=== PATIENT | male | born 1965 | race Caucasian/White ===

== ENCOUNTER → 2020-03-09 13:08 | Outpatient (CLI) | payer OTHER, SELFPAY ==
[2020-03-09 15:30] LABS: COVID19 -Nasal RAPID Negative (Negative)
== END ==
PROVIDERS: Visit Provider Physician Assistant
DX: Z20.828 Contact with and (suspected) exposure to other viral communicable diseases (principal)
CPT/HCPCS: 87635

== ENCOUNTER 2020-03-11 06:10 | Inpatient (IN) | payer OTHER, SELFPAY ==
[2020-03-03 13:43] VITALS: BMI 29.7
[2020-03-11] VITALS (20 sets, daily range): BP systolic 97–155; BP diastolic 46–88; PULSE 57–99; RESP 10–16; TEMP 35.9–37.9; O2SAT 83–100; BMI 30.1
--- NOTE | 2020-03-11 | DI.RAD.S_ITS ---
PROCEDURE: XR LUMBAR SPINE 2-3V INDICATIONS: L3-4, L4-5 TLIF TECHNIQUE: 2 operative views of the lumbar spine were acquired. COMPARISON: None. FINDINGS: AP and lateral C-arm images demonstrate posterolateral raquel and pedicle screw fixation at L3 through L5 and interbody cage material placement at L3-L4 and L4-L5. IMPRESSION: Operative imaging utilized during lumbar fusion. No radiographic evidence of complications. Dictated by: Navdeep Marshall M.D. on 03/11/2020 at 11:39 Approved by: Navdeep Marshall M.D. on 03/11/2020 at 11:40
[2020-03-11] MEDS: LACTATED RINGERS 1,000 ML 42 ML IV ×2 (07:01→09:26)
--- NOTE | 2020-03-11 07:43 | PM.PREOP ---
Pre-operative Note COVID-19 COVID-19 status: Negative Result date/Date tested (Pos, Neg/Pending): 03/09/20 Interval Note History & Physical reviewed/Exam performed by Physician: Yes Changes to H&P: No
[2020-03-11] MEDS: CEFAZOLIN 2 GM/100 ML FROZ.PIGGY IV (07:53)
--- NOTE | 2020-03-11 08:42 | SUR.OPER ---
Prone on spine table, head in foam head support, padded chest and pelvic supports, gel pad at knees, lower legs supported by pillows; nipples, genitalia and toes free of pressure, arms secured on foam padded arm boards at <90 degrees abduction.
[2020-03-11] MEDS: BUPIVACAINE LIPOSOME 266 MG/20 ML VIAL INJ (08:46)
[2020-03-11] MEDS: BUPIVACAINE 0.25% W/ EPI (PF) 10 ML VIAL 20 ML INJ (08:48)
--- NOTE | 2020-03-11 11:11 | PM.OP.1 ---
Operative Date/Time/Diagnoses Date of procedure: 03/11/20 Time of procedure: 08:11 Pre-op diagnosis: 1. L3-4, L4-5 spinal stenosis 2. L3-4, L4-5 spondylolisthesis Post-op diagnosis: same Procedure & Clinicians Procedure: 1. L3-4, L4-5 Postero-lateral and posterior interbody fusion 2. L3-4, L4-5 interbody cage placement. 3. L3-4, L4-5 decompressive laminectomy with bilateral facetecomies 4. L3-4, L4-5 Posterior segmental instrumentation 5. [place] of bone marrow from iliac crest 6. Utilization of microsurgical technique and operating microscope Same procedure as scheduled: Yes Indications: Patient has been having chronic back pain and worsening lumbar radiculopathy. Patient failed multiple conservative management with worsening pain weakness and numbness in her lower extremity. Patient has been having difficulty performing activity of daily living. After discussing risks benefits of treatment options, patient elected proceed with surgery. Surgeon: Yamel Burgos [employer] Glass Installer: Moira Gonzalez'Brien Click Yes if Unassisted: No Anesthesia Type: General Operative Notes Closure Type: primary Specimen(s): none sent Prosthetic devices, grafts, tissues, transplants, or devices: Globus revolve screws, Rise cages Applied: catheter Estimated Blood Loss (mL): 100 Blood products transfused: none Procedure in detail: Patient was seen in the preoperative area. Risks and benefits of the surgery was discussed with the patient. Informed consent was obtained from the patient and placed in the chart. Surgical site was marked. Patient was taken to the operative room. General anesthesia was administered. Prophylactic antibiotic was given to the patient less than 30 min before the incision was made. Patient was placed into a prone position on the Kenji table. Patient's back was then prepped and draped in the sterile fashion. Time-out was performed at this time. Using AP and lateral C-arm imaging the interval between L3-4, L4-5 was identified and marked on patient's back. A 2 inch incision 2 in from midline was made on the right side first. The fascia was incised in line with skin incision. Globus MARS retractors was placed inside the incision and docked onto the L3 and L4 lamina. Using microsurgical technique and operating microscope, a L3 and L4 laminectomy and L3-4, L4-5 facetectomy was performed using a [place] rongeur. Patient was found have severe neural foraminal stenosis which required a total facetectomy and rendered the L3-4 L4-5 level grossly unstable and required a fusion procedure at the same time. The epidural space and the lateral recess and neural foramen was fully decompressed after the laminectomy and total facetectomy was completed. The disc space at L3-4, L4-5 was identified. And a total diskectomy was performed at L3-4, L4-5 level. The endplates were decorticated using a rasp and shaver. The total diskectomy and decortication was performed at L3-4, L4-5 level in order to to accomplish a L3-4, L4-5 fusion. The local bone from the laminectomy and facetectomy was saved for local bone grafting. After the total diskectomy and decortication was completed, Trifecta bone graft material was combined with local bone that was harvested earlier. At this time, a separate skin is incision was made over the iliac crest. A Jamshidi needle was inserted into the iliac crest through a separate skin incision. 5 cc of bone marrow aspiration was obtained through the separate skin incision using a Jamshidi needle from the iliac crest. The bone marrow aspiration was combined with local bone and the Trifecta bone grafting material. The bone grafting material was placed into the L3-4, L4-5 interbody space along with two cages, one expandable cage at each level. The cages were expanded to their maximum height using the torque limiting screwdriver. At this time a mirror image incision was made on the left side. The fascia was incised in line with the skin incision. Globus MARS retractor was inserted and docked onto the L3-4, L4-5 posterolateral gutter. Using the power drill, posterior-lateral decortication was performed at L3-4, L4-5 level until bleeding cortical bone was identified. The remaining bone grafting material was placed into the L3-4, L4-5 posterior lateral gutter he order to accomplish posterolateral fusion at the L3-4, L4-5 levels. Using the double C-arm technique, pedicle screws were placed into the L3, L4, L5 pedicles bilaterally. This was done by placing the Jamshidi needle into the pedicles, then placing the guidewires over the Jamshidi needle, and finally placing the cannulated screws over the guidewires bilaterally. After the pedicle screws were placed, 2 titanium rods was locked into the heads of the pedicle screws using locking caps and torque limiting screwdriver. Total 6 pedicles screws were placed. After all the hardware was placed, and confirmed with AP and lateral C-arm imaging, the wound was then irrigated with sterile normal saline and packed with Ray-Ghanshyam gauze for 3 min to accomplish hemostasis. After the gauze was removed the deep fascia was closed with #1 Vicryl suture. The subcutaneous layer was closed with 2-0 Vicryl. The skin was closed with skin singh. Patient tolerated the procedure well. There were no complications. Complications: none Post-operative Condition: stable Disposition: PACU Plan for aftercare: Admit to inpatient hospital
[2020-03-11] MEDS: hydrOXYzine 50 MG/ML INJ IM (11:43)
[2020-03-11] MEDS: SODIUM CHLORIDE 0.9% 1,000 ML 100 ML IV (13:40)
--- NOTE | 2020-03-11 15:00 | PT.IIE ---
Current Diagnoses Spondylolisthesis, lumbar region (03/11/20) Other spondylosis with radiculopathy, lumbosacral region (03/11/20) Spinal stenosis, lumbar region without neurogenic claudication (03/11/20) Surgery Performed Operation Date: 03/11/20 07:45 Actual Procedures p L3-4, L4-5 TLIF w/ posterior instrumentation - Yamel Burgos MD Surgical History (Last Updated 03/03/20 @ 14:18 by Nelia Demarco, RN) History of nasal surgery (~2018) S/P epidural steroid injection Medical History (Last Updated 03/03/20 @ 14:18 by Nelia Demarco, NICO) Back pain Enlarged ureter Lactose intolerance Seasonal allergies Sleep apnea Spinal stenosis of lumbar region without neurogenic claudication Spondylolisthesis Physical Therapy Inpatient Evaluation/Re-Eval M1 PT/OT-IP Prior Functional Status Start: 03/11/20 15:30 Freq: NEEDED Status: Active Protocol: Document 03/11/20 15:00 AB (Rec: 03/11/20 15:43 AB [id number]) Medical Review Prior Functional Status Medical History Reviewed Yes Communication able to make needs known Mobility and Gait Pt stated that he is independent with all mobilities and ambulation without AD Social History Household Members children Living Arrangements House Number of Floors (Floors) Two Floors Number of Stairs To Enter/Railing? will say on main levle of the house has 2 steps to enter with bilateral rails Home Environment High Toilet,Walk in Shower Home Equipment Hand Held Shower Additional Social History Comment stated that he has access to a lot of equipements; will have access to a shower chair, FWW , w/c son will be able to assist him M2 PT-IP Current Condition Start: 03/11/20 15:30 Freq: NEEDED Status: Active Protocol: Document 03/11/20 15:00 AB (Rec: 03/11/20 15:43 AB [email or web address]) Physical Therapy Current Condition Current Condition Evaluation Date 03/11/20 Treatment Diagnosis s/p L3-4, L4-5 fusion/lami; difficulty in walking Onset Date 03/11/20 Precautions Lumbar Precautions Log Roll,No Twisting,Limit Bending,Lifting Restriction of 10 lbs,Gait Belt above Incisional Area M3 PT-IP Subjective Start: 03/11/20 15:30 Freq: NEEDED Status: Active Protocol: Document 03/11/20 15:00 AB (Rec: 03/11/20 15:43 AB [id number]) Subjective Physical Therapy Visit Type Type Initial Evaluation Visit Start Time 15:00 Visit Stop Time 15:27 Total Visit Minutes 27 Number of SEWER PIPE LAYER Visits 0 Physical Therapy Visit Comments Patient Comments agreeable to do PT Therapy Pain Assessment Pain When Pain Assessed At Rest Pain Present Pain Present Pain Reported Location Lower Back Intensity 7 Scale Used Numeric (0 - 10) Pain Management Techniques Apply Cold,Modification of Treatment,Re-positioning M4 PT-IP Mobility and Gait Start: 03/11/20 15:30 Freq: NEEDED Status: Active Protocol: Document 03/11/20 15:00 AB (Rec: 03/11/20 15:43 AB [id number]) PT-Bed Mobility Assessment Rolling Type of Rolling Log Rolling Level of Assist Standby Assistance Supine to Sit Supine to Sit Standby Assistance PT-Transfer Assessment Sit to and From Stand Sit to and from Stand Standby Assistance Equipment Transfer Assistive Device Gait Belt Orthotic/Prosthetic Devices or Brace: No Transfers Transfer Destination Chair Transfer Technique ambulated using FWW Comments Mobility Comments reviewed back precautions and log roll bed mobility and pt able to recall. completed supine to sit SBA. pt was able to sit on EOB SBA. completed sit to stand SBA and ambulated in room SBA ~ 35 ft using FWW SBA. agreed to sit up on chair. positioned on chair. call light and table placed within reach. nurse aware of pain level. Gait Assessment Gait Gait Assistance Required: Standby Assistance Distance (Feet) 35 Able to Maintain Weight Bearing Status Yes During Gait Assistive Devices Assistive Device Gait Belt,Front Wheeled Walker Orthotic/Prosthetic Devices or Brace: No Factors Limiting Gait Function Factors Limiting Gait Function Decreased Activity Tolerance, Limited Range of Motion,Pain, Poor Balance PT-Balance Assessment Sitting Balance and Reactions Static Sitting Balance Ability Good Dynamic Sitting Balance Ability Good Standing Balance and Reactions Static Standing Balance Ability Fair Dynamic Standing Balance Ability Fair Device Used FWW M5 PT-IP Objective Assessments Start: 03/11/20 15:30 Freq: NEEDED Status: Active Protocol: Document 03/11/20 15:00 AB (Rec: 03/11/20 15:43 AB [id number]) Orientation Orientation/Cognition Level of Alertness Alert Orientation Name,Age,Birthday,Month,Date, Year,Day of Week,Place, Situation Language Function Ability No Deficits Noted Safety Awareness Understands Safety Issues Memory Description No Deficits Noted Gross Range of Motion Lower Extremity ROM Assessment Within Functional Limits Strength Lower Extremity Strength Assessment Within Functional Limits Coordination Assessment Gross Coordination Gross Coordination WNL Sensation Assessment Sensation Gross Sensation WNL Muscle Tone Muscle Tone WNL Yes M6 PT-IP Treatment Start: 03/11/20 15:30 Freq: NEEDED Status: Active Protocol: Document 03/11/20 15:00 AB (Rec: 03/11/20 15:43 AB [email or web address]) Physical Therapy Treatment Education Education Provided Precautions,Weight Bearing Status,Post-Op Packet,Safety M7 PT-IP Assessment and Plan Start: 03/11/20 15:30 Freq: NEEDED Status: Active Protocol: Document 03/11/20 15:00 AB (Rec: 03/11/20 15:43 AB [email or web address]) PT Summary Assessment and Plan Potential Rehabilitation Potential Good Status of Condition at Evaluation Stable Summary Impairments Pain,ROM,Strength,Balance,Bed Mobility,Transfers,Gait, Activity Tolerance Assessment Summary pt s/p lumbar fusion and just had surgery this morning. pt requiring SBA with mobility and plans to go home with son to assist him. will conduct caregiver training when appropriate and also complete stair climbing training prior to d/c. Goals Bed Mobility Goal Independent Transfer Goal Independent,Front Wheeled Walker Gait Goal Independent,Front Wheel Walker Gait Distance 200 Other Goals up/down 2 steps bilateral rails mod I Days to Meet Goals 3 Frequency of Treatment Frequency Of Treatment Twice a Day Treatment Plan Physical Therapy Treatment Plan Bed Mobility Training,Transfer Training,Gait Training, Therapeutic Exercise,Balance Retraining,Post Op Education, Discharge Planning,Hot or Cold Pack,Neuromuscular Re-ed, Coordination Retraining,Manual Therapy Recommendations To Nursing Amount of Assist Needed 1 Person Assist Discharge Recommendations PT Discharge Recommendations Home with Assistance Transportation Needs at Discharge Private Vehicle
--- NOTE | 2020-03-11 15:13 | OT.IP.EVAL ---
Current Diagnoses Spondylolisthesis, lumbar region (03/11/20) Other spondylosis with radiculopathy, lumbosacral region (03/11/20) Spinal stenosis, lumbar region without neurogenic claudication (03/11/20) Surgery Performed Operation Date: 03/11/20 07:45 Actual Procedures p L3-4, L4-5 TLIF w/ posterior instrumentation - Yamel Burgos MD Past Medical History (Last Updated 03/03/20 @ 14:18 by Nelia Demarco RN) Back pain Enlarged ureter Lactose intolerance Seasonal allergies Sleep apnea Spinal stenosis of lumbar region without neurogenic claudication Spondylolisthesis Surgical History (Last Updated 03/03/20 @ 14:18 by Nelia Demarco RN) History of nasal surgery (~2018) S/P epidural steroid injection Occupational Therapy Inpatient Evaluation/Re-Eval M1 PT/OT-IP Prior Functional Status Start: 03/11/20 15:30 Freq: NEEDED Status: Active Protocol: Document 03/11/20 15:48 CGR (Rec: 03/11/20 15:57 CGR [id number]) Medical Review Prior Functional Status Medical History Reviewed Yes Communication able to make needs known Mobility and Gait Pt stated that he is independent with all mobilities and ambulation without AD Activities of Daily Living and IADL's Pt was IND in all ADLs. Prior Functional Level (Other details) Pt lives with his 16 yo son who has type 1 diabetes. Pt cared for a friend who recently and has access to any DME he needs. Social History Household Members children Living Arrangements House Number of Floors (Floors) Two Floors Number of Stairs To Enter/Railing? will say on main levle of the house has 2 steps to enter with bilateral rails Home Environment High Toilet,Walk in Shower Home Equipment Front Wheel Walker,Four Wheel Walker,Manual Wheelchair,Hand Held Shower Additional Social History Comment stated that he has access to a lot of equipement; will have access to a shower chair, FWW, w/c son will be able to assist him M2 OT-IP Current Condition Start: 03/11/20 15:48 Freq: Status: Active Protocol: Document 03/11/20 15:48 CGR (Rec: 03/11/20 15:57 CGR [id number]) Occupational Therapy Current Condition Current Condition Evaluation Date 03/11/20 Treatment Diagnosis L3-5 TLIF Diagnosis Onset Date 03/11/20 Post Operative Precautions Lumbar Precautions Log Roll,No Twisting,Limit Bending,Lifting Restriction of 10 lbs,Gait Belt above Incisional Area M3 OT- IP Subjective and Pain Start: 03/11/20 15:48 Freq: Status: Active Protocol: Document 03/11/20 15:48 CGR (Rec: 03/11/20 15:57 CGR [id number]) OT- Subjective Occupational Therapy Visit Type Type Initial Evaluation Visit Start Time 14:46 Visit Stop Time 15:13 Total Visit Minutes 27 Notes P.T. entered towards end of OT session. Occupational Therapy Visit Comments Patient Comments I just need to use the bathroom. OT Pain Assessment Pain When Pain Assessed At Rest Pain Present Pain Present Pain Reported Location Lower Back Intensity 8 Scale Used Numeric (0 - 10) M4 OT- IP ADL's Start: 03/11/20 15:48 Freq: Status: Active Protocol: Document 03/11/20 15:48 CGR (Rec: 03/11/20 15:57 CGR [id number]) OT [id number] Comments OT Self-Feeding Comments Not meal time OT ADL-Grooming Comments OT Grooming Comments Pt declined OT ADL-Oral Care Comments Oral Care Comments Pt declined OT ADL-Dressing General Eval Lower Body Dressing Ability Total Assistance Areas Needing Assistance Socks OT ADL-Toileting General Evaluation Toileting Ability Standby Assistance Devices Toileting Assistive Devices Grab Bars Comments OT Toileting Comments simulated seated toileting in the bathroom. OT ADL-Bathing Comments OT Bathing Comments Not performed M5 OT- IP IADL's Start: 03/11/20 15:48 Freq: Status: Active Protocol: Document 03/11/20 15:48 CGR (Rec: 03/11/20 15:57 CGR [id number]) OT-Instrumental Activities of Daily Living Deficits IADL Deficits Identified No Deficits Home Safety Awareness Awareness of Need for Assistance at Home Good Awareness Ability to Problem Solve Emergency Able to Problem Solve Situations Medication Management Medication Management No Deficits Identified Money Management Money Management No Deficits Identified Meal Preparation Meal Preparation No Deficits Identified Network Systems Consultant Network Systems Consultant No Deficits Identified Driving Driving Comments 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 OT- IP Functional Cognition Start: 03/11/20 15:48 Freq: Status: Active Protocol: Document 03/11/20 15:48 CGR (Rec: 03/11/20 15:57 CGR [id number]) Cognitive Factors Limiting Selfcare Function Cognitive Ability Level of Alertness Alert Patient Orientation Name,Age,Birthday,Month,Date, Year,Day of Week,Place, Situation Attention Span Ability Capable of Focused Attention, Capable of Sustained Attention Ability to Follow Commands Able to Follow Multi-Step Commands Memory Description No Deficits Noted Safety Awareness No Deficits Noted OT- Vision and Hearing OT- Hearing Assessment OT- Hearing Assessment WFL OT- Vision Assessment Visual Acuity Glasses For Reading Visual Attentiveness WFL Occular Pursuits WFL Visual Convergence WFL M7 OT- IP Mobility and Balance Start: 03/11/20 15:48 Freq: Status: Active Protocol: Document 03/11/20 15:48 CGR (Rec: 03/11/20 15:57 CGR [id number]) OT- Bed Mobility Assessment Rolling Type of Rolling Log Rolling,Roll to Left Level of Assistance Standby Assistance Supine to Sit Supine to Sit Assist Minimal Assistance Sit to Supine Sit to Supine Assist Standby Assistance Scooting Scooting to Edge of Bed Standby Assistance OT-Transfer Assessment Sit to and From Stand Sit to and from Stand Contact Guard Assistance Transfers Transfer Ability Contact Guard Assistance Technique Transfer Destination Bed,Toilet Transfer Technique Stand Step Pivot Devices Transfer Assistive Devices Gait Belt,Front Wheeled Walker Comments Mobility Comments Pt ambulated to the toilet then returned to the edge of the bed. pt states he prefers to stand but then states that he felt nauseated and requests to return to supine. OT- Balance Assessment Sitting Balance and Reactions Static Sitting Balance Ability Normal Dynamic Sitting Balance Ability Good M8 OT- IP Objective Assessments Start: 03/11/20 15:48 Freq: Status: Active Protocol: Document 03/11/20 15:48 CGR (Rec: 03/11/20 15:57 CGR [id number]) OT Gross Range of Motion Upper Extremity Range of Motion Assessment Within Functional Limits OT Strength Upper Extremity Strength Assessment Within Functional Limits Comments Strength Comments grossly 5/5 OT- Coordination Assessment Upper Extremity Finger to Nose Test Within Functional Limits Finger Tapping Test Within Functional Limits OT-Muscle Tone Assessment Muscle Tone WNL Yes OT Sensation Assessment Edema Edema Absent M9 OT- IP Assessment and Plan Start: 03/11/20 15:48 Freq: Status: Active Protocol: Document 03/11/20 15:48 CGR (Rec: 03/11/20 15:57 CGR [id number]) OT Summary Assessment and Plan Potential Rehabilitation Potential Excellent Analytic Complexity at Evaluation Low Summary OT Impairments Pain,Functional Mobility, Grooming,Dressing,Toileting, Bathing,Toilet Transfers, Shower Transfers,Activity Tolerance Progress Towards Goals Progressing Toward Goals Assessment Summary Pt presents as a low complexity evaluation s/p admit for L3-5 TLIF. Pt is progressing well but will benefit from 1-2 OT sessions for LB dressing training and shower training. Pt states his older son can stay with him if needed. Plan is for discharge home. Goals Grooming Goal Independent Dressing Goal Independent Toileting Goal Independent Bathing Goal Independent Toilet Transfer Goal Independent Shower Transfer Goal Independent Days to Meet Goals 2 Frequency of Treatment Frequency Of Treatment Once a Day Treatment Plan OT Treatment Plan ADL Training,Functional Mobility,Patient/Family Education,Discharge Planning Other Treatment Recommendations and Next shower and LB dressing Treatment Focus Discharge Recommendations OT Discharge Recommendations Home with Assistance Home Equipment Needs TBD Transportation Needs at Discharge Private Vehicle
[2020-03-11] MEDS: OXYCODONE IR 5 MG TABLET 10 MG PO ×2 (15:25→20:08)
[2020-03-11] MEDS: CLINDAMYCIN 900 MG/50 ML PIGGYBACK 50 MG IV (16:31)
[2020-03-11] MEDS: hydrOXYzine pamoate 25 MG CAPSULE PO ×2 (16:37→20:08)
[2020-03-11] MEDS: SENNOSIDES 8.6 MG TABLET 17.2 MG PO (20:08)
[2020-03-11] MEDS: DOCUSATE 100 MG CAPSULE PO (20:08)
[2020-03-11] MEDS: FLUTICASONE 120 SPRAY/16 GM SPRAY.SUSP NASAL (20:09)
[2020-03-12] VITALS: BP 129/77; PULSE 90; RESP 16; TEMP 37.6; O2SAT 97
[2020-03-12] MEDS: hydrOXYzine pamoate 25 MG CAPSULE PO ×2 (00:15→03:49)
[2020-03-12] MEDS: CLINDAMYCIN 900 MG/50 ML PIGGYBACK 50 MG IV (00:15)
[2020-03-12] MEDS: OXYCODONE IR 5 MG TABLET 10 MG PO ×4 (00:15→11:30)
[2020-03-12 05:46] LABS: Hemoglobin 13.9 g/dL (13.5-17.5)
[2020-03-12 06:04] VITALS: BP 136/74; PULSE 78; RESP 16; TEMP 36.9; O2SAT 96
[2020-03-12 07:45] VITALS: BP 130/78; PULSE 82; RESP 16; TEMP 36.7; O2SAT 99
[2020-03-12] MEDS: ACETAMINOPHEN 325 MG TABLET 650 MG PO (07:56)
[2020-03-12] MEDS: DOCUSATE 100 MG CAPSULE PO (07:56)
--- NOTE | 2020-03-12 09:59 | PT.IPTN ---
Current Diagnoses Spondylolisthesis, lumbar region (03/11/20) Other spondylosis with radiculopathy, lumbosacral region (03/11/20) Spinal stenosis, lumbar region without neurogenic claudication (03/11/20) Surgery Performed Operation Date: 03/11/20 07:45 Actual Procedures p L3-4, L4-5 TLIF w/ posterior instrumentation - Yamel Burgos MD Physical Therapy Treatment Note M2 PT-IP Current Condition Start: 03/11/20 15:30 Freq: NEEDED Status: Active Protocol: Document 03/11/20 15:00 AB (Rec: 03/11/20 15:43 AB [id number]) Physical Therapy Current Condition Current Condition Evaluation Date 03/11/20 Treatment Diagnosis s/p L3-4, L4-5 fusion/lami; difficulty in walking Onset Date 03/11/20 Precautions Lumbar Precautions Log Roll,No Twisting,Limit Bending,Lifting Restriction of 10 lbs,Gait Belt above Incisional Area M3 PT-IP Subjective Start: 03/11/20 15:30 Freq: NEEDED Status: Active Protocol: Document 03/12/20 09:50 KS (Rec: 03/12/20 11:50 KS [id number]) Subjective Physical Therapy Visit Type Type Treatment Note Visit Start Time 09:50 Visit Stop Time 09:59 Total Visit Minutes 9 Number of HOT ROLL INSPECTOR Visits 1 Physical Therapy Visit Comments Patient Comments agreeable to do PT M4 PT-IP Mobility and Gait Start: 03/11/20 15:30 Freq: NEEDED Status: Active Protocol: Document 03/12/20 09:50 KS (Rec: 03/12/20 11:50 KS [id number]) PT-Transfer Assessment Sit to and From Stand Sit to and from Stand Independent Equipment Transfer Assistive Device Gait Belt Orthotic/Prosthetic Devices or Brace: No Transfers Transfer Destination Chair Transfer Technique ambulated w/o AD Transfer Ability Level of Assist Independent,Standby Assistance Comments Mobility Comments Pt in chair upon arrival from therapy. Independent for sit<> Stand w/o AD. Pt then ambulated ~50 ft to stairs w/o AD and ascended/descended 3 steps w/ L hand rail step over step pattern SBA. Patient denied pain or light headedness. Able to recall 3/3 spinal precautions. He then returned to room and chair SBA . Patient feels he is ready to return home. Gait Assessment Gait Gait Assistance Required: Standby Assistance Distance (Feet) 100 Able to Maintain Weight Bearing Status Yes During Gait Assistive Devices Assistive Device None,Gait Belt Orthotic/Prosthetic Devices or Brace: No Gait Deviations General Gait Pattern Within Normal Limits Comments Gait Comments Pt ambulated ~100 ft total w/o AD and step through pattern. No LOB noted. Stair Climbing Assessment Evaluation Level of Assist On Stairs Standby Assistance,1 Person Assistance Devices Stair Climbing Assistive Devices None,Left Railing Technique/Endurance Stair Climbing Direction Ascend and Descend Stair Climbing Technique Step Over Step Number of Steps Climbed 3 Stair Climbing Set # Repetitions (reps) 1 Comments Stair Climbing Comments Pt ascended/descended 3 steps w/ L rail ascending step over step pattern SBA w/o cues. Patient states he will be able to complete stairs at home w/ o complications. PT-Balance Assessment Sitting Balance and Reactions Static Sitting Balance Ability Good Dynamic Sitting Balance Ability Good Standing Balance and Reactions Static Standing Balance Ability Good Dynamic Standing Balance Ability Good Device Used none M5 PT-IP Objective Assessments Start: 03/11/20 15:30 Freq: NEEDED Status: Active Protocol: Document 03/11/20 15:00 AB (Rec: 03/11/20 15:43 AB [id number]) Orientation Orientation/Cognition Level of Alertness Alert Orientation Name,Age,Birthday,Month,Date, Year,Day of Week,Place, Situation Language Function Ability No Deficits Noted Safety Awareness Understands Safety Issues Memory Description No Deficits Noted Gross Range of Motion Lower Extremity ROM Assessment Within Functional Limits Strength Lower Extremity Strength Assessment Within Functional Limits Coordination Assessment Gross Coordination Gross Coordination WNL Sensation Assessment Sensation Gross Sensation WNL Muscle Tone Muscle Tone WNL Yes M6 PT-IP Treatment Start: 03/11/20 15:30 Freq: NEEDED Status: Active Protocol: Document 03/12/20 09:50 KS (Rec: 03/12/20 11:50 KS [id number]) Physical Therapy Treatment Education Education Provided Precautions,Weight Bearing Status,Post-Op Packet,Safety Other Treatments Other Treatment Performed Reveiwed spinal precautions, pt recalled 3/3 M7 PT-IP Assessment and Plan Start: 03/11/20 15:30 Freq: NEEDED Status: Active Protocol: Document 03/12/20 09:50 KS (Rec: 03/12/20 11:50 KS [id number]) PT Summary Assessment and Plan Potential Rehabilitation Potential Good Status of Condition at Evaluation Stable Summary Impairments Pain,ROM,Strength,Balance,Bed Mobility,Transfers,Gait, Activity Tolerance Assessment Summary Pt is independent to SBA for all transfers, ambulation, and stairs. He was able to recall all spinal precautions and denied any trouble performing logroll. He ambulated ~100 total ft w/o AD and no LOB and ascended/descended 3 steps w/ L rail step over step SBA. Patient may return home when medically stable. Goals Bed Mobility Goal Independent Transfer Goal Independent,Front Wheeled Walker Gait Goal Independent,Front Wheel Walker Gait Distance 200 Other Goals up/down 2 steps bilateral rails mod I Days to Meet Goals 3 Frequency of Treatment Frequency Of Treatment Twice a Day Treatment Plan Physical Therapy Treatment Plan Bed Mobility Training,Transfer Training,Gait Training, Therapeutic Exercise,Balance Retraining,Post Op Education, Discharge Planning,Hot or Cold Pack,Neuromuscular Re-ed, Coordination Retraining,Manual Therapy Recommendations To Nursing Amount of Assist Needed 1 Person Assist Discharge Recommendations PT Discharge Recommendations Home with Assistance Transportation Needs at Discharge Private Vehicle
--- NOTE | 2020-03-12 09:59 | PM.PN.1 ---
Subjective Subjective Date Patient Seen: 03/12/20 Time Patient Seen: 10:00 Interval history: Patient is POD#1 s/p L3-4, L4-[address] Burgos. Pain has been moderate, controlled with Oxycodone. He has mobilized with PT and about the halls. Tolerating a diet. Bernabe removed overnight. Denies any numbness, tingling, weakness. No chest pain or shortness of breath. No complaints. Exam Vital Signs (past 8 hours): - 03/12/20 06:04 03/12/20 07:45 Temperature 98.4 F 98.1 F Pulse Rate 78 82 Respiratory Rate 16 16 Blood Pressure 136/74 130/78 Pulse Oximetry 96 99 Oxygen Delivery Method Nasal Cannula Oxygen Flow Rate 0 Narrative Exam Narrative: 54 year old male resting in bed, alert and oriented in no acute distress. Dressing in place over lumbar spine is CDI. Small area of shadow drainage on the left. 5/5 BLE. Calves soft, nontender bilaterally. Objective Labs Result Diagrams: 03/12/20 05:35 Labs: Laboratory Results - last 24 hr 03/12/20 05:35 Hgb 13.9 Hct 42.0 PFSH Medical History Back pain Enlarged ureter Lactose intolerance Seasonal allergies Sleep apnea Spinal stenosis of lumbar region without neurogenic claudication Spondylolisthesis Surgical History History of nasal surgery (~2017) S/P epidural steroid injection Social History household members: children Smoking Status: Former smoker alcohol intake: current Assessment & Plan Assessment & Plan narrative: -Patient is POD#1 s/p L3-4, L4-5 TLIF. Doing well postoperatively. -He has worked with both PT/OT and is progressing well. Lumbar spine precautions. -Prescriptions of Oxycodone and Vistaril provided. -Discharge to home this afternoon. -Follow up as scheduled outpatient in 2 weeks.
--- NOTE | 2020-03-12 10:07 | CM.DANOTE ---
DCP: Case received, EMR reviewed and met with patient. Introduced self and role. Was able to obtain information from patient regarding his baseline activity status prior to surgery, as well as living situation. DCP assessment completed with information currently available. Patient is a 54 year old male who admitted yesterday morning to the care of the orthopedic team. PCP: Dr. Brooks. Payer: confirmed: [employer]. Patient came to the hospital via family vehicle for a surgical procedure. He had Translaminar interbody fusion/Laminotomy. Patient has history of spinal stenosis, as well as osteoarthritis. 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 Met with patient in his room. He was standing up with his walker. He is alert and oriented. He stated, I already feel better since I've had this surgery, it's nothing like the pain that I had before. He stated that he is independent at his baseline. He lives with one of his sons, who stated is a diabetic type 1, but also has another son named Hardik, who patient stated, he can give me some help when I go home. P: Patient has discharge orders for home today. He will be working with physical therapy team before discharge. Gisela Gómez RN/Inspector Aligning
--- NOTE | 2020-03-12 10:21 | OT.IP.TRT ---
Current Diagnoses Spondylolisthesis, lumbar region (03/11/20) Other spondylosis with radiculopathy, lumbosacral region (03/11/20) Spinal stenosis, lumbar region without neurogenic claudication (03/11/20) Surgery Performed Operation Date: 03/11/20 07:45 Actual Procedures p L3-4, L4-5 TLIF w/ posterior instrumentation - Yamel Burgos MD Occupational Therapy Treatment Note M2 OT-IP Current Condition Start: 03/11/20 15:48 Freq: Status: Active Protocol: Document 03/11/20 15:48 CGR (Rec: 03/11/20 15:57 CGR [id number]) Occupational Therapy Current Condition Current Condition Evaluation Date 03/11/20 Treatment Diagnosis L3-5 TLIF Diagnosis Onset Date 03/11/20 Post Operative Precautions Lumbar Precautions Log Roll,No Twisting,Limit Bending,Lifting Restriction of 10 lbs,Gait Belt above Incisional Area M3 OT- IP Subjective and Pain Start: 03/11/20 15:48 Freq: Status: Active Protocol: Document 03/12/20 13:45 CGR (Rec: 03/12/20 13:49 CGR [id number]) OT- Subjective Occupational Therapy Visit Type Type Progress Note Visit Start Time 09:53 Visit Stop Time 10:21 Total Visit Minutes 28 Occupational Therapy Visit Comments Patient Comments I am ready to go home OT Pain Assessment Pain When Pain Assessed During Mobility Pain Present Pain Present Pain Reported Location Lower Back Intensity 6 Scale Used Numeric (0 - 10) Management Techniques Distraction,Modification of Treatment,Re-positioning M4 OT- IP ADL's Start: 03/11/20 15:48 Freq: Status: Active Protocol: Document 03/12/20 13:45 CGR (Rec: 03/12/20 13:49 CGR [id number]) OT [id number] Comments OT Self-Feeding Comments Not meal time OT ADL-Grooming General Evaluation Grooming Ability Independent Areas Needing Assistance Combing/Brushing Hair,Face Washing Comments OT Grooming Comments done in shower and after shower without assist OT ADL-Oral Care Comments Oral Care Comments Not performed OT ADL-Dressing General Eval Upper Body Dressing Ability Independent Lower Body Dressing Ability Standby Assistance Areas Needing Assistance Pull-Over Shirt,Underpants/ Brief,Pants/Shorts,Socks Comments OT Dressing Comments Educated on seated dressing. Pt is able to bring foot to knee for dressing while maintaining his back precautions. OT ADL-Toileting General Evaluation Toileting Ability Independent OT ADL-Bathing Bathing Type Bathing Type Shower General Evaluation Bathing Ability Standby Assistance Areas Needing Assistance Wash/Dry Back Devices Bathing Equipment Hand Held Shower Sprayer, Shower Chair with Arms M5 OT- IP IADL's Start: 03/11/20 15:48 Freq: Status: Active Protocol: Document 03/11/20 15:48 CGR (Rec: 03/11/20 15:57 CGR [id number]) OT-Instrumental Activities of Daily Living Deficits IADL Deficits Identified No Deficits Home Safety Awareness Awareness of Need for Assistance at Home Good Awareness Ability to Problem Solve Emergency Able to Problem Solve Situations Medication Management Medication Management No Deficits Identified Money Management Money Management No Deficits Identified Meal Preparation Meal Preparation No Deficits Identified 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 No Deficits Identified Driving Driving Comments 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 OT- IP Functional Cognition Start: 03/11/20 15:48 Freq: Status: Active Protocol: Document 03/11/20 15:48 CGR (Rec: 03/11/20 15:57 CGR [id number]) Cognitive Factors Limiting Selfcare Function Cognitive Ability Level of Alertness Alert Patient Orientation Name,Age,Birthday,Month,Date, Year,Day of Week,Place, Situation Attention Span Ability Capable of Focused Attention, Capable of Sustained Attention Ability to Follow Commands Able to Follow Multi-Step Commands Memory Description No Deficits Noted Safety Awareness No Deficits Noted OT- Vision and Hearing OT- Hearing Assessment OT- Hearing Assessment WFL OT- Vision Assessment Visual Acuity Glasses For Reading Visual Attentiveness WFL Occular Pursuits WFL Visual Convergence WFL M7 OT- IP Mobility and Balance Start: 03/11/20 15:48 Freq: Status: Active Protocol: Document 03/12/20 13:45 CGR (Rec: 03/12/20 13:49 CGR [id number]) OT-Transfer Assessment Sit to and From Stand Sit to and from Stand Independent Transfers Transfer Ability Independent Technique Transfer Destination Chair,Shower Stall,Toilet Transfer Technique Stand Step Pivot Devices Transfer Assistive Devices Gait Belt Comments Mobility Comments Pt started session with walker but then ambulated without walker with IND. OT- Gait Assessment Gait Gait Assistance Required: Independent Assistive Devices Assistive Device Gait Belt OT- Balance Assessment Sitting Balance and Reactions Static Sitting Balance Ability Normal Dynamic Sitting Balance Ability Normal M8 OT- IP Objective Assessments Start: 03/11/20 15:48 Freq: Status: Active Protocol: Document 03/11/20 15:48 CGR (Rec: 03/11/20 15:57 CGR [id number]) OT Gross Range of Motion Upper Extremity Range of Motion Assessment Within Functional Limits OT Strength Upper Extremity Strength Assessment Within Functional Limits Comments Strength Comments grossly 5/5 OT- Coordination Assessment Upper Extremity Finger to Nose Test Within Functional Limits Finger Tapping Test Within Functional Limits OT-Muscle Tone Assessment Muscle Tone WNL Yes OT Sensation Assessment Edema Edema Absent M9 OT- IP Assessment and Plan Start: 03/11/20 15:48 Freq: Status: Active Protocol: Document 03/12/20 13:45 CGR (Rec: 03/12/20 13:49 CGR [id number]) OT Summary Assessment and Plan Potential Rehabilitation Potential Excellent Analytic Complexity at Evaluation Low Summary OT Impairments Pain,Functional Mobility, Grooming,Dressing,Toileting, Bathing,Toilet Transfers, Shower Transfers,Activity Tolerance Progress Towards Goals Progressing Toward Goals Assessment Summary Pt presents as a low complexity evaluation s/p admit for L3-5 TLIF. Pt is progressing well and presents at SBA to IND at this time. No further OT needs. Pt is planned for d/c this AM. Goals Grooming Goal Independent Dressing Goal Independent Toileting Goal Independent Bathing Goal Independent Toilet Transfer Goal Independent Shower Transfer Goal Independent Days to Meet Goals 2 Frequency of Treatment Frequency Of Treatment Once a Day Treatment Plan OT Treatment Plan ADL Training,Functional Mobility,Patient/Family Education,Discharge Planning Other Treatment Recommendations and Next shower and LB dressing Treatment Focus Discharge Recommendations OT Discharge Recommendations Home with Assistance Home Equipment Needs TBD Transportation Needs at Discharge Private Vehicle
--- NOTE | 2020-03-12 12:05 | PC.NURSE ---
All discharge teaching done regarding medications, ss of infection, activity, diet, ss of stroke, fall prevention and opioid use. Patient acknowledged and verbalized understanding to all discharge teaching. Patient left facility via wheelchair to private vehicle with all belongings and with paper prescriptions.
== END 2020-03-12 12:07 | disposition home or self-care (01) | DRG 455 ==
PROVIDERS: Admitting Provider Orthopaedic Surgery Orthopaedic Surgery of the Spine; PCP Family Medicine; Referring Provider Family Medicine; Visit Provider Orthopaedic Surgery Orthopaedic Surgery of the Spine
PROC: 0SG10AJ Fusion of 2 or more Lumbar Vertebral Joints with Interbody Fusion Device, Posterior Approach, Anterior Column, Open Approach (ICD-10-PCS; principal; 2020-03-11 07:45)
DX: M48.061 Spinal stenosis, lumbar region without neurogenic claudication (principal); M47.27 Other spondylosis with radiculopathy, lumbosacral region; M43.16 Spondylolisthesis, lumbar region; J45.909 Unspecified asthma, uncomplicated; G47.30 Sleep apnea, unspecified; Z87.891 Personal history of nicotine dependence
CPT/HCPCS: 36415; 72100; 76000; 85014; 85018; 97116; 97161; 97165; 97535; C1776; A9270; C9290; J0330; J0690; J1100; J1170; J2250; J2405; J2704; J3010; J3410

== ENCOUNTER → 2023-06-05 06:38 | Outpatient (CLI) | payer OTHER, SELFPAY ==
[2020-03-11 13:58] VITALS: BMI 30.1
--- NOTE | 2023-06-05 06:43 | DI.MRI.S_ITS ---
PROCEDURE: MR HIP LT WO CON INDICATIONS: Spinal stenosis, left hip strain TECHNIQUE: Noncontrast coronal T1 spin echo and STIR through the bony pelvis. Coronal and axial T2 fast spin echo with fat saturation, sagittal T1 spin echo, and oblique axial T2 fast spin echo with fat saturation through the hip. COMPARISON: None. FINDINGS: Image quality: Excellent. Bones and joints: Mild bilateral hip joint osteoarthritic changes are seen with superior joint space narrowing and subchondral sclerosis. No intraosseous lesions or fractures. No avascular necrosis of the femoral heads. Susceptibility artifacts are noted in visualized lower lumbar spine from prior surgery. Tendons and ligaments: Distal left gluteus medius and minimus tendinosis at their insertion on greater trochanter is seen. The nearby proximal iliotibial band also appears intact. The iliopsoas tendon appears intact, without adjacent bursal fluid collections or evidence for impingement syndrome. The origin of the hamstring tendon is intact at the ischial tuberosity, as well as the associated sacrotuberous ligament. The straight and reflected heads of the rectus femoris muscle origin appear intact, as well as the conjoint tendon. The ligamentum teres appears intact where visualized. Labrum and cartilage: Fraying of superior anterior labrum in left hip with T2 hyperintense signal at 12 to 1 o'clock position is seen suggestive of superior anterior labral tear. Thinning of cartilage surface over left femoral head is seen. The alpha angle of the femur is within normal limits at less than 55 degrees. Soft tissues: There is edema within the obturator externus muscle at the level of ischial tuberosity suggestive of low-grade strain/partial-thickness tear. Quadratus femoris muscle demonstrates no internal edema to suggest ischiofemoral impingement. The proximal sciatic neurovascular bundle appears normal adjacent to the hamstring tendons. No free pelvic fluid. Bladder wall thickness is normal. Genitourinary structures and bowel loops appear normal where visualized. IMPRESSION: 1. Mild bilateral hip joint osteoarthritis. No marrow edema. No fracture or dislocation. No evidence of avascular necrosis. 2. Distal left gluteus medius and minimus tendinosis. Low-grade strain/partial-thickness tear involving inferior lateral portion of left obturator externus muscle at the level of ischial tuberosity. 3. Suggestion of subtle superior anterior left hip labral tear at 12 to 1 o'clock position. Dictated by: Omar Mcneill M.D. on 06/05/2023 at 9:01 Approved by: Omar Mcneill M.D. on 06/05/2023 at 9:04
--- NOTE | 2023-06-05 06:43 | DI.MRI.S_ITS ---
PROCEDURE: MR LUMBAR SPINE WO CON INDICATIONS: Spinal stenosis, left hip strain TECHNIQUE: Noncontrast sagittal T1 spin echo and T2 fast echo, sagittal STIR, and T2 fast spin echo through the lumbar spine. In cases with scoliosis, additional coronal T2 fast spin echo may be performed. COMPARISON: [facility], MR, MR LUMBAR SPINE WITHOUT CONTRAST, 09/08/2019, 13:55. [facility], CT, CT LUMBAR SPINE WITHOUT CONTRAST, 02/05/2023, 11:48. [facility] MR, MR LUMBAR SPINE WITHOUT CONTRAST, 05/16/2022, 14:44. FINDINGS: Image quality: Excellent. Alignment and Curvature: There is normal bony alignment. Bone Marrow: Marrow is of normal overall signal. No acute vertebral body compression fractures. Spinal Cord: Conus medullaris terminates at the L1 level. Visualized cord demonstrates normal signal and size. Paraspinous Soft Tissues: No paravertebral masses. Severe left hydronephrosis and probable right pararenal cysts are redemonstrated and are incompletely characterized on this limited view of the kidneys. T12-L1: Severe disc desiccation and height loss. Mild facet ligamentum flavum hypertrophy. No canal stenosis. No bilateral foraminal stenosis. Findings are unchanged from the study dated May 16, 2022. L1-L2: Severe disc desiccation and height loss. Mild facet and ligamentum flavum hypertrophy. No canal stenosis. No foraminal stenosis. Findings are unchanged. L2-L3: Severe disc desiccation and height loss. Vacuum disc phenomenon. Mild facet and ligamentum flavum hypertrophy. No canal stenosis. Mild bilateral foraminal stenosis. Findings are unchanged. L3-L4: Posterior fixation and discectomy. Probable left hemilaminectomy. No canal stenosis. Mild right and moderate left foraminal narrowing. There is slight deformity of the exiting left nerve root which is increased in severity from the prior study. L4-L5: Posterior fixation and discectomy. Left hemilaminectomy. No canal stenosis. Moderate bilateral foraminal stenosis similar to the prior study. L5-S1: Mild disc desiccation and height loss. Mild facet ligamentum flavum hypertrophy. No canal stenosis. Moderate right and mild left foraminal narrowing. The extent of left neural foraminal stenosis is slightly increased from the prior study. IMPRESSION: 1. Slight increase in the left foraminal stenosis at L3-4 and L5-S1 when compared with the study dated May 16, 2022. 2. No significant canal stenosis of the lumbar spine. 3. Severe left hydronephrosis and questionable right hydronephrosis versus pararenal cysts which are incompletely characterized. If further characterization is warranted, renal ultrasound or CT of the abdomen and pelvis could be used. Additionally, urologic consult recommended if not already performed. Dictated by: Sheree Watson M.D. on 06/05/2023 at 9:54 Approved by: Sheree Watson M.D. on 06/05/2023 at 10:04
== END ==
PROVIDERS: PCP Family Medicine; Referring Provider Preventive Medicine Occupational Medicine; Visit Provider Orthopaedic Surgery Orthopaedic Surgery of the Spine
DX: M48.061 Spinal stenosis, lumbar region without neurogenic claudication; M47.816 Spondylosis without myelopathy or radiculopathy, lumbar region; N13.30 Unspecified hydronephrosis; M16.0 Bilateral primary osteoarthritis of hip; S76.012A Strain of muscle, fascia and tendon of left hip, initial encounter
CPT/HCPCS: 72148; 73721